=== PATIENT | female | born 1970 | race Caucasian/White ===

== ENCOUNTER → 2023-07-31 18:51 | Outpatient (REF) | payer BC, SELFPAY | LOC: WDC 18:51 | PROVIDERS: ATTENDING PHYSICIAN Nurse Practitioner Adult Health | DX: Z12.31 Encounter for screening mammogram for malignant neoplasm of breast (principal) | CPT/HCPCS: 77063; 77067 ==

== ENCOUNTER 2024-09-25 16:37 | Emergency (ER) | payer BC, SELFPAY ==
[2024-09-25 16:39] VITALS: BP 124/72
[2024-09-25 17:01] LABS: % Basophils 0.7 % (0-2); % Eosinophils 0.6 % (0-6); % Immature Granulocytes 0.1 % (0-0.5); % Lymphocytes 23.1 % (20.5-51.1); % Monocytes 3.7 % (1.7-9.3); % Neutrophils 71.8 % (42.2-75.2); Absolute Basophils 0.1 10^3/uL (0-0.2); Absolute Lymphocytes 1.6 10^3/uL (1.2-3.4); Absolute Monocytes 0.3 10^3/uL (0.1-0.6); Absolute Neutrophils 4.9 10^3/uL (1.4-6.5); Hematocrit 41.2 % (37.0-47.0); Hemoglobin 14.3 g/dL (12.0-16.0); Mean Corp Hgb Conc. 34.7 g/dL (33.0-37.0); Mean Corpuscular Hgb 29.3 pg (27.0-31.0); Mean Corpuscular Volume 84.4 fL (81.0-99.0); Mean Platelet Volume 8.8 fL (7.4-10.4); Nucleated Red Blood Cells % 0 %; Platelet Count 333 10^3/uL (130-400); Red Blood Cell Count 4.88 10^6/uL (4.20-5.40); Red Cell Dist. Width 12.9 % (11.5-14.5); White Blood Cell Count 6.8 10^3/uL (4.8-10.8)
[2024-09-25 17:18] LABS: ALT (SGPT) 19 U/L (0-35); AST (SGOT) 22 U/L (14-36); Albumin 4.2 g/dl (3.5-5.0); Alkaline Phosphatase 89 U/L (38-126); Blood Urea Nitrogen 10 mg/dl (7-17); Calcium 10.4 mg/dl (8.4-10.2); Carbon Dioxide 25 mmol/L (22-30); Chloride 106 mmol/L (98-107); Glucose 102 mg/dl (70-99); Lipase 105 U/L (23-300); Potassium 4.3 mmol/L (3.5-5.1); Sodium 139 mmol/L (135-145); Total Bilirubin 0.9 mg/dl (0.2-1.3); Total Protein 7.2 g/dl (6.3-8.2); eGFR > 60.00
--- NOTE | 2024-09-25 17:35 | ED.GENMED ---
History of Present Illness
General
Chief Complaint: Abdominal Pain
Source: patient
Exam Limitations: none
Time Seen by Provider: 09/25/24 17:24
Nursing documentation reviewed up to this point in time: agreed with
History of Present Illness
History of Present Illness:
54-year-old female presents emergency department due to epigastric abdominal pain that began this morning. It occurred after she ate toast. She also complains of a migraine that she has had since last night. She took sumatriptan but it did not
help.
Past History
Past History
ED Past Medical History: Other (Migraine headache)
ED Past Surgical History: Gynecological and Orthopedic
Social History
Tobacco: Non-smoker
Alcohol: None
Drug: None
Review of Systems
Review of Systems
Allergies reviewed?: Yes
All Other Systems: Not applicable
Constitutional: Reports no symptoms
EENT: Reports no symptoms
Respiratory: Reports no symptoms
Cardiac: Reports no symptoms
ABD/GI: Reports abdominal pain and nausea
: Reports no symptoms
Musculoskeletal: Reports no symptoms
Skin: Reports no symptoms
Neurological: Reports headache
Endocrine: Reports no symptoms
Hematologic/Lymphatic: Reports no symptoms
Psychiatric: Reports no symptoms
Phy Exam
Physical Exam
Physical Exam:
Physical Exam
General: no apparent distress, not acutely ill
Neck: supple. no meningeal signs. normal posterior pharynx
Heart: s1/s2 regular rate and rhythm, no murmur. equal radial
pulses.
HEENT: Pupils equal round reactive to light, EOMI
Lungs: no acute respiratory distress. clear bilaterally
Abdomen: normal bowel sounds. not tender. no CVAT
Neuro: alert and oriented. no focal neurological deficits cranial nerves II through XII intact
Skin: no rash
Psychiatric: well kept. interactive and cooperative
Extremities: no edema. no calf tenderness. negative homans. good distal pulses
Scores
Heart Score for Chest Pain Patients
STEMI patient?: No
History: Slightly or Non-Suspicious
ECG: Normal
Age: >45 - <65 years
Risk Factors: No Risk Factors
Troponin: </= Normal Limit
Heart Score for Chest Pain Patients: 1
Heart Score Risk: 2.5% MACE over next 6 weeks
Course
Orders/Labs/Results
Orders:
Orders
09/25/24 16:41
Electrocardiogram (*1) Urgent
Reason for Study: Abdominal Pain
EKG- Treatment ONCE
09/25/24 16:53
Complete Blood Count/With Diff Urgent
Comprehensive Metabolic Panel Urgent
Lipase Urgent
09/25/24 17:32
IV Insert/Care/Rem.- Treatment PRN
Diphenhydramine [Benadryl] 25 mg IV NOW STA
Ketorolac [Toradol] 15 mg IV NOW STA
Lactated Ringers [Lr] 1,000 ml IV BOLUS
Metoclopramide [Reglan] 10 mg IV NOW STA
09/25/24 17:33
US Abdomen Complete/Upper Urgent
Comment:
Reason For Exam: epigastric pain
09/25/24 17:35
Pantoprazole [Protonix IV] 40 mg IV NOW STA
09/25/24 18:22
Troponin I Urgent
09/25/24 19:04
Aspirin Chewable [Low Strength Aspirin] 324 mg .ROUTE .STK-MED ONE
09/25/24 19:15
Aspirin Chewable [Low Strength Aspirin] 324 mg PO NOW STA
09/25/24 21:15
Troponin I Urgent
Abnormal Lab Results
09/25/24 09/25/24
16:53 18:22
Glucose 102 H mg/dl
(70-99)
Calcium 10.4 H mg/dl
(8.4-10.2)
Troponin I 0.040 H* ng/ml
09/25/24 16:53
09/25/24 16:53
Vital Signs
Initial and Last Documented VS:
Initial Vital Signs
Temp Pulse Resp BP Pulse Ox
98.4 F 76 18 124/72 96
09/25/24 16:39 09/25/24 16:39 09/25/24 16:39 09/25/24 16:39 09/25/24 16:39
Last Documented Vital Signs
Temp Pulse Resp BP Pulse Ox
98.4 F 68 18 113/52 98
09/25/24 16:39 09/25/24 20:46 09/25/24 20:46 09/25/24 20:46 09/25/24 20:46
*Radiology
Radiology exam reviewed: radiology read reviewed (Ultrasound no acute findings)
*Pulse Oximetry
Patient hypoxic: no
*EKG
Interpreted by ED Provider?: Yes
EKG Intrepretation Date: 09/25/24
EKG Intrepretation Time: 16:45
Interpretation: abnormal
Comparison EKG: changes noted
Heart Rate: 71
Rate: normal
Rhythm: sinus
[place]: normal axis
Interval: normal interval
QRS Pattern: normal QRS
Ischemia: non-specific ST changes
*Assessment Counselor Interpretation
Rate: normal
Interpretation: normal
Heart Rate: 78
Rhythm: sinus
*Critical Care Note
Total Time (30-74mins, 75-104mins- exclusive of procedures): Not Applicable
Patient Management
Social determinants of health affecting care: Living situation and Strong social support
Escalation/DeEscalation of care consider admission/obs:
Admit not indicated
ED Attending Note
-
Portions of this chart may have been created with voice recognition software.� Occasional wrong word or��sound alike� substitutions may have occurred due to the inherent limitations of voice recognition software.
Discharge Plan
Departure
Patient Disposition: Home (Routine Discharge)
Date of Disposition: 09/25/24
Time of Disposition: 22:02
Patient with high blood pressure during this ER visit?: No
Condition: Good
Discharge Problem:
Chest pain, Acute epigastric pain
Instructions: Chest Pain CBC Follow Up, Abdominal Pain
Prescriptions:
No Action
vitamin E 268 mg (400 unit) Capsule
268 mg PO DAILY
propranolol 20 mg Tablet
20 mg PO DAILY
sumatriptan succinate 100 mg Tablet
100 mg PO DAILYPRN PRN (Reason: migraine)
Theragen Tablet
1 tab PO DAILY
ascorbic acid (vitamin C) [Vitamin C] 500 mg Tablet
500 mg PO DAILY
cholecalciferol (vitamin D3) [Vitamin D3] 50 mcg (2,000 unit) Tablet
50 mcg PO DAILY
Referrals:
NONE,* [Family Provider] -
Interventions
Interventions:
*Risk Screen - Suicide Last Done: 09/25/24 16:39
*General Assessment Last Done: 09/25/24 16:39
*Neglect/Abuse Screening Last Done: 09/25/24 16:39
*ED COVID-19 Vaccine History Last Done: 09/25/24 16:39
*Nursing Disposition Last Done: 09/25/24 22:22
FP-[id number] Assessment Last Done: 09/25/24 18:38
Discharge Date and Time
Discharge Date/Time: 09/25/24 22:22
Print Language: NICARAGU[place]
[2024-09-25] MEDS: PROTONIX IV 40 MG IV (19:07)
[2024-09-25] MEDS: TORADOL 15 MG IV (19:10)
[2024-09-25] MEDS: BENADRYL 25 MG IV (19:10)
[2024-09-25] MEDS: REGLAN 10 MG IV (19:11)
[2024-09-25] MEDS: LR 1000 IV (19:13)
[2024-09-25] MEDS: LOW STRENGTH ASPIRIN 324 MG PO (19:15)
[2024-09-25 20:46] VITALS: BP 113/52
[2024-09-25 21:52] LABS: Troponin I < 0.012 ng/ml
== END 2024-09-25 22:22 | disposition home or self-care (01) ==
LOC: EMR 16:37
PROVIDERS: Student in an Organized Health Care Education/Training Program; EMERGENCY PHYSICIAN Emergency Medicine
DX: R07.9 Chest pain, unspecified (principal); R10.13 Epigastric pain; G43.909 Migraine, unspecified, not intractable, without status migrainosus
CPT/HCPCS: 96374; 96375; 96361; 99284; 76700; 80053; 83690; 84484; 85025; 93005

== ENCOUNTER → 2024-10-16 18:25 | Outpatient (REF) | payer BC, SELFPAY | LOC: WDC 18:25 | PROVIDERS: ATTENDING PHYSICIAN Nurse Practitioner Adult Health; FAMILY PHYSICIAN Physician Assistant Medical | DX: Z12.31 Encounter for screening mammogram for malignant neoplasm of breast (principal) | CPT/HCPCS: 77063; 77067 ==

== ENCOUNTER → 2024-10-24 08:35 | Outpatient (REF) | payer BC, SELFPAY | LOC: HWRCS 08:35 | PROVIDERS: ATTENDING PHYSICIAN Internal Medicine Cardiovascular Disease; FAMILY PHYSICIAN Student in an Organized Health Care Education/Training Program | DX: R07.89 Other chest pain (principal); R79.89 Other specified abnormal findings of blood chemistry | CPT/HCPCS: 78452; 93017; A9500 ==

== ENCOUNTER 2024-11-19 06:18 | Day surgery (SDC) | payer BC, SELFPAY | END 2024-11-19 12:25 | disposition home or self-care (01) | LOC: GI 06:18 | PROVIDERS: ATTENDING PHYSICIAN Internal Medicine Gastroenterology | DX: R10.13 Epigastric pain (principal); R07.9 Chest pain, unspecified; K31.7 Polyp of stomach and duodenum; K31.89 Other diseases of stomach and duodenum; K29.50 Unspecified chronic gastritis without bleeding | CPT/HCPCS: 43239; 88305; 88342 ==